=== PATIENT | male | born 1945 | race Caucasian/White ===

== ENCOUNTER 2016-07-05 17:09 | Emergency (ER) | payer OTHER, MEDICARE ==
--- NOTE | 2016-07-05 18:40 | US ---
DUPLX SCAN VEIN EXT UNI RT History: Right shoulder and upper arm swelling. Known rotator cuff tear. Findings: Ultrasonography of the right upper extremity was performed, with grayscale color and Doppler technique utilizing evaluation of the upper extremity. There is adequate compressibility of the deep venous system without current findings of deep venous thrombosis. Normal responses are seen to augmentation and Valsalva maneuvers. Normal respiratory variation is observed as well. There is a an elongated fluid collection seen in the region of the deltoid possibly related to the patient's reported rotator cuff tear. Impression: 1. A right upper extremity ultrasound which currently appears negative, with no current findings of deep venous thrombosis observed. 2. An elongated fluid collection within the tissues of the right lateral shoulder with considerations including hematoma, an infected collection, or possibly related to the patient's reported rotator cuff pathology.
== END 2016-07-05 19:01 | disposition home or self-care (01) ==
LOC: ED 17:09
DX: S46.001A Unspecified injury of muscle(s) and tendon(s) of the rotator cuff of right shoulder, initial encounter (principal); M79.89 Other specified soft tissue disorders; Z79.899 Other long term (current) drug therapy; X58.XXXA Exposure to other specified factors, initial encounter; Y92.9 Unspecified place or not applicable